=== PATIENT | female | born 1975 | race Two or more races ===

== ENCOUNTER → 2019-11-05 | Emergency (ER) | payer SELFPAY ==
[~2019-11-05] VITALS: Ht 170.2 cm; Wt 72.6 kg
[~2019-11-05] MED LIST: PREN-96 PO; SODIUM CHLORIDE 0.9% 1,000 ML IVB ONE; cefTRIAXone 1GM/50ML D5W 50 ML IV ONE
[2019-11-05 18:16] LABS: Basophils # (auto) 0 10 ^3/uL (0-0.2); Basophils % (auto) 0.4 % (0.0-2.0); Eosinophils # (auto) 0.1 10 ^3/uL (0-0.8); Hematocrit 38.8 % (36.0-46.0); Hemoglobin 12.7 g/dL (12.2-16.2); Lymphocytes # (auto) 1.7 10 ^3/uL (0.4-5.4); Lymphocytes % (auto) 18.2 % (10.0-50.0); Mean Corpuscular Hemoglobin 29.2 pg (28.0-32.0); Mean Corpuscular Hgb Conc. 32.9 g/dL (32.0-36.0); Mean Corpuscular Volume 88.7 fL (80.0-100.0); Monocytes # (auto) 0.6 10 ^3/uL (0-1.3); Monocytes % (auto) 6.1 % (0.0-12.0); Neutrophils % (auto) 74.3 % (37.0-80.0); Nucleated Red Blood Cells % 0.1 %; Platelet Count (auto) 294 10^3/uL (140-450); Red Blood Cells 4.37 10^6/uL (4.0-5.20); Red Cell Distribution Width 12.7 % (11.8-14.3); White Blood Cell 9.4 10^3/uL (4.4-10.8)
[2019-11-05 18:20] LABS: Urine Bacteria FEW /hpf (None Seen); Urine Blood Negative /uL (Negative); Urine Specific Gravity 1.011 (1.001-1.035); Urine WBC 45 /hpf (0 - 5)
[2019-11-05 18:34] LABS: Albumin 3.5 g/dL (3.4-5.0); Calcium 9.3 mg/dL (8.5-10.1); Magnesium 2.2 mg/dL (1.6-2.6); Potassium 3.8 mmol/L (3.5-5.1)
[2019-11-05 18:36] LABS: BUN/Creatinine Ratio 17.1
[2019-11-05 18:39] LABS: Bilirubin, Total 0.2 mg/dL (0.2-1.0); Total Protein 7.9 g/dL (6.4-8.2)
[2019-11-05 21:39] VITALS: BP 121/65
== END | disposition home or self-care (01) ==
LOC: ER 17:02
DX: N39.0 Urinary tract infection, site not specified (principal); N13.30 Unspecified hydronephrosis; K80.20 Calculus of gallbladder without cholecystitis without obstruction
CPT/HCPCS: 36415; 74176; 80053; 81001; 81025; 83690; 83735; 85025; 96365; 99284; J0696; J7030; 96374